=== PATIENT | male | born 2000 | race Caucasian/White ===

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

== ENCOUNTER 2023-11-07 14:26 | Emergency (ER) | payer SELFPAY ==
[~2023-11-07] VITALS: Ht 180.3 cm; Wt 101.0 kg
[~2023-11-07 14:26] MED LIST changes: +AMOX-422 PO; +IBUP-1985 PO
[2023-11-07 14:49] VITALS: BP 158/83; PULSE 98; RESP 16; TEMP 98.7; O2SAT 99
[2023-11-07] MEDS ORDERED: AMOX-580 PO (14:54)
== END 2023-11-07 15:05 | disposition home or self-care (01) ==
LOC: ER 14:27
DX: S51.851A Open bite of right forearm, initial encounter (principal); Z79.2 Long term (current) use of antibiotics; Z79.1 Long term (current) use of non-steroidal anti-inflammatories (NSAID); Z79.899 Other long term (current) drug therapy; W55.01XA Bitten by cat, initial encounter; Y93.89 Activity, other specified; Y92.89 Other specified places as the place of occurrence of the external cause; Y99.8 Other external cause status
CPT/HCPCS: 99283